=== PATIENT | female | born 1940 | race Two or more races ===

== ENCOUNTER 2017-02-21 22:56 | Inpatient (IN) | payer MEDICARE, BC ==
[~2017-02-21] VITALS: Ht 162.6 cm; Wt 63.5 kg
[~2017-02-21 22:56] MED LIST: ATORVASTATIN CA20 MG ORAL; BP MEDS PO; CHOLESTEROL PO; MICARDIS80 MG ORAL
[2017-02-21] MEDS ORDERED: Ketorolac 30mg Inj IM ONE (23:15)
[2017-02-21] MEDS ORDERED: DiphenhydrAMINE 50mg/ml Inj IVP ONE (23:15)
[2017-02-21] MEDS ORDERED: HYDROmorphone 1mg/ml Carpuject IVP ONE (23:15)
[2017-02-21 23:30] LABS: BASOPHILS % (AUTO) 0.7 % (0.0-2.0); EOSINOPHILS % (AUTO) 2.1 % (0.0-3.0); LYMPHOCYTES % (AUTO) 35.1 % (20.0-45.0); MEAN CORPUSCULAR HEMOGLOBIN 31.4 PG (27.0-31.0); MEAN CORPUSCULAR HGB CONC 33.7 G/DL (32.0-36.0); MEAN CORPUSCULAR VOLUME 93 FL (80-99); MEAN PLATELET VOLUME 6.2 FL (6.5-10.1); MONOCYTES % (AUTO) 8.6 % (1.0-10.0); NEUTROPHILS % (AUTO) 53.5 % (45.0-75.0); PLATELET COUNT 234 K/UL (150-450); RED CELL DISTRIBUTION WIDTH 11.7 % (11.6-14.8); WHITE BLOOD COUNT 8.8 K/UL (4.8-10.8)
[2017-02-21 23:46] LABS: INR 1.1 (0.9-1.1); PROTHROMBIN TIME 10.7 SEC (9.30-11.50)
[2017-02-21 23:48] LABS: ALANINE AMINOTRANSFERASE 18 U/L (3-33); ALBUMIN/GLOBULIN RATIO 1.3 (1.0-2.7); ANION GAP 16 (5-15); ASPARTATE AMINO TRANSFERASE 19 U/L (5-40); CALCIUM 9.3 mg/dL (8.6-10.2); CARBON DIOXIDE 24 mEQ/L (20-30); CHLORIDE 96 mEQ/L (98-107); CREATININE 1.1 mg/dL (0.5-0.9); HEMOLYSIS 0; POTASSIUM 5.1 mEQ/L (3.4-4.9); SODIUM 136 mEQ/L (135-145); TOTAL PROTEIN 6.7 g/dL (6.6-8.7)
[2017-02-22 00:28] VITALS: BP 149/76
--- NOTE | 2017-02-22 00:32 | Emergency Room Report ---
History of Present Illness General Chief Complaint: Multiple Trauma/Fall Source: Patient, Family Member, EMS Present Illness HPI The patient presents with right thigh pain. She fell tonight using her walker. She's had a femur fracture before. It feels like that. Paramedics placed her in a hair traction splint. He also gave her a milligrams of morphine. This controlled her pain somewhat but then they say that the pain is coming back again. She denies any numbness of her foot there. In the last 2 days he's had evaluations of x-rays of her pelvis her lower back and the femur which have been negative. These were all done and seizures. He the patient denies any fevers, cough, chest pain or dysuria. She's been able to move her bowels without difficulty. The pain right now is severe constant and is also muscle spasm. It radiates somewhat up into her buttock area. She had a prior L femur fracture. She has osteoporosis. No NVD, dysuria, chest pain, dyspnea, headache, bleeding. Allergies: Coded Allergies: No Known Allergies (Unverified , 02/21/17) Patient History Past Medical History: see triage record Social History Narrative at home Reviewed Nursing Documentation: PMH: Agreed, PSxH: Agreed Nursing Documentation-PMH Hx Hypertension: Yes Hx Diabetes: Yes Hx Cancer: No Hx Gastrointestinal Problems: No Hx Neurological Problems: Yes - HX MIGRAINE-LAST EPISODE 50 YRS AGO Hx Neurologic Surgery: Yes - BRAIN SURGERY Review of Systems All Other Systems: negative except mentioned in HPI Physical Exam Vital Signs Date Time Temp Pulse Resp B/P Pulse Ox O2 Delivery O2 Flow Rate FiO2 02/21/17 22:56 98.1 107 16 143/64 99 Room Air Sp02 EP Interpretation: reviewed, normal General Appearance: alert, GCS 15, mild distress Head: normocephalic Eyes: bilateral eye PERRL, bilateral eye normal inspection ENT: moist mucus membranes Neck: supple Respiratory: chest non-tender, lungs clear, normal breath sounds Cardiovascular #1: regular rate, rhythm Cardiovascular #2: 2+ radial (R), 2+ dorsalis pedis (R) Gastrointestinal: normal inspection, normal bowel sounds, non tender, no mass, non-distended Musculoskeletal: back normal, digits/nails normal, no calf tenderness, pelvis stable, other - hare traction splint R Neurologic: alert, oriented x3, motor strength/tone normal, sensory intact, speech normal, other - distal neurovasc normal Psychiatric: anxious Skin: warm/dry, other - sallo Medical Decision Making Diagnostic Impression: Primary Impression: Femur fracture, right Qualified Codes: S72.321A - Displaced transverse fracture of shaft of right femur, initial encounter for closed fracture Additional Impressions: Fall Qualified Codes: W19.XXXA - Unspecified fall, initial encounter Degenerative joint disease (DJD) of lumbar spine Qualified Codes: M47.816 - Spondylosis without myelopathy or radiculopathy, lumbar region ER Course Presents with right thigh pain after a fall. Differential includes contusion, hip fracture, femur fracture, knee fracture amongst others. X-rays are indicated. Also aggressive analgesia will be sought. Laboratory will be obtained. The patient also needs a Parker catheter. The traction is appropriately applied. X-ray reveals a mid shaft femur fracture. Discussion with family center around the fact that they are requesting that she be transferred to [facility]. Her private primary physician was contacted and he is attempting to arrange transfer. The patient's pain is 5/10 after Dilaudid. She is declining more pain medication at this time. [facility] not have beds. Admit here Dr. Barraza. Dr. Cedillo contacted with x-rays. Discussed with family that she could not be transferred. They would still like her transferred as soon as possible. Neurovasc intact with Hare traction, position excellent as examined by me. Laboratory Tests Test 02/21/17 23:15 02/22/17 00:40 White Blood Count 8.8 K/UL (4.8-10.8) Red Blood Count 3.60 M/UL (4.20-5.40) L Hemoglobin 11.3 G/DL (12.0-16.0) L Hematocrit 33.5 % (37.0-47.0) L Mean Corpuscular Volume 93 FL (80-99) Mean Corpuscular Hemoglobin 31.4 PG (27.0-31.0) H Mean Corpuscular Hemoglobin Concent 33.7 G/DL (32.0-36.0) Red Cell Distribution Width 11.7 % (11.6-14.8) Platelet Count 234 K/UL (150-450) Mean Platelet Volume 6.2 FL (6.5-10.1) L Neutrophils (%) (Auto) 53.5 % (45.0-75.0) Lymphocytes (%) (Auto) 35.1 % (20.0-45.0) Monocytes (%) (Auto) 8.6 % (1.0-10.0) Eosinophils (%) (Auto) 2.1 % (0.0-3.0) Basophils (%) (Auto) 0.7 % (0.0-2.0) Prothrombin Time 10.7 SEC (9.30-11.50) Prothrombin Time INR 1.1 (0.9-1.1) PTT 24 SEC (23-33) Sodium Level 136 mEQ/L (135-145) Potassium Level 5.1 mEQ/L (3.4-4.9) H Chloride Level 96 mEQ/L (98-107) L Carbon Dioxide Level 24 mEQ/L (20-30) Anion Gap 16 (5-15) H Blood Urea Nitrogen 33 mg/dL (7-23) H Creatinine 1.1 mg/dL (0.5-0.9) H Estimate Glomerular Filtration Rate mL/min (>60) Glucose Level 172 mg/dL (74-106) H Calcium Level 9.3 mg/dL (8.6-10.2) Total Bilirubin < 0.2 mg/dL (0.0-1.2) Aspartate Amino Transferase (AST) 19 U/L (5-40) Alanine Aminotransferase (ALT) 18 U/L (3-33) Alkaline Phosphatase 43 U/L (35-104) Total Protein 6.7 g/dL (6.6-8.7) Albumin 3.8 g/dL (3.5-5.2) Globulin 2.9 g/dL Albumin/Globulin Ratio 1.3 (1.0-2.7) Urine Color Pale yellow Urine Appearance Clear Urine pH 6 (4.5-8.0) Urine Specific [place] 1.015 (1.005-1.035) Urine Protein Negative (NEGATIVE) Urine Glucose (UA) 2+ (NEGATIVE) H Urine Ketones Negative (NEGATIVE) Urine Occult Blood Negative (NEGATIVE) Urine Nitrite Negative (NEGATIVE) Urine Bilirubin Negative (NEGATIVE) Urine Urobilinogen Normal MG/DL (0.0-1.0) Urine Leukocyte Esterase Negative (NEGATIVE) EKG Diagnostic Results Rate: normal Rhythm: NSR ST Segments: no acute changes Rhythm Strip Diag. Results EP Interpretation: yes Rhythm: NSR, no PVC's, no ectopy Chest X-Ray Diagnostic Results EP Interpretation: Yes Findings: no consolidation, no effusion, no pneumothorax Number of Views: 1 Other X-Ray Diagnostic Results Other X-Ray Diagnostic Results #1: X-Ray Ordered: LS spine EP Interpretation: Yes Findings: no soft tissue swelling, other - prior abnormalities with scoleosis Other X-Ray Diagnostic Results #2: X-Ray Ordered: r femur EP Interpretation: Yes Findings: no soft tissue swelling, other - fx with some displacement Number of Views: 2 Other X-Ray Diagnostic Results #3: X-Ray Ordered: pelvis EP Interpretation: Yes Findings: no fractures, no dislocation, no soft tissue swelling - L pinning hip Last Vital Signs Date Time Temp Pulse Resp B/P Pulse Ox O2 Delivery O2 Flow Rate FiO2 02/22/17 09:25 96.6 02/22/17 08:00 75 20 118/59 98 Room Air Status: improved Disposition: ADMITTED INPATIENT Condition: Serious Referrals: KRUNAL BARRAZA (PCP) Krunal Lange M.D. Feb 22, 2017 00:32
[2017-02-22 00:56] LABS: APPEARANCE,URINE CLEAR; KETONES,URINE NEGATIVE (NEGATIVE); LEUKOCYTE ESTERASE ,URINE NEGATIVE (NEGATIVE); NITRITE,URINE NEGATIVE (NEGATIVE); PH,URINE 6 (4.5-8.0); PROTEIN,URINE NEGATIVE (NEGATIVE); UROBILINOGEN,URINE NORMAL MG/DL (0.0-1.0)
[2017-02-22 02:40] VITALS: BP 125/63
[2017-02-22] MEDS ORDERED: UNOBMED (02:43)
[2017-02-22] MEDS ORDERED: Norco 5mg/325mg tab ORAL PRN (03:15)
[2017-02-22 04:06] VITALS: BP 123/61
[2017-02-22 04:30] VITALS: BP 121/60
[2017-02-22] MEDS: HYDROmorphone 1mg/ml Carpuject IVP PRN ×2 (06:34→08:55)
[2017-02-22 08:00] VITALS: BP 118/59
[2017-02-22] MEDS ORDERED: Enoxaparin 60mg Inj SUBQ ONE (09:00)
[2017-02-22] MEDS ORDERED: Enoxaparin 40mg Inj SUBQ SCH (09:00)
[2017-02-22] MEDS ORDERED: NovoLOG Insulin Flexpen SUBQ SCH (11:30)
--- NOTE | 2017-02-22 11:37 | Diagnostic Imaging Report ---
Indication: TRAUMA Technique: One view of the chest Comparison: none Findings: The lungs and pleural spaces are clear. The heart is mildly enlarged. Aorta is tortuous and calcified. There are degenerative changes of the lumbar spine Impression: Cardiomegaly. No acute process This agrees with the preliminary interpretation provided by the emergency room physician
--- NOTE | 2017-02-22 11:37 | Diagnostic Imaging Report ---
Indication: TRAUMA Technique: One view of the pelvis Comparison: None Findings: Surgical hardware seen reducing old left hip fracture. No definite acute fractures. No dislocations. There are degenerative changes of the pubic symphysis. Impression: No definite acute bony trauma. Note, however, that in elderly osteopenic patients, nondisplaced hip or pelvic fractures can easily be occult. Correlate with clinical findings, consider cross-sectional imaging if there is high clinical suspicion This agrees with the preliminary interpretation provided by the emergency room physician
--- NOTE | 2017-02-22 11:41 | Diagnostic Imaging Report ---
Indications: TRAUMA, pain, status post fall Technique: Two views of the right femur Comparison: None Findings: There is a fracture of the femoral shaft, displaced by at least one half bone width, slightly angulated, slightly rotated. There is a knee prosthesis. Impression: Positive for proximal femoral shaft fracture This agrees with the preliminary interpretation provided by the emergency room physician
[2017-02-22 12:00] VITALS: BP 114/64
--- NOTE | 2017-02-22 13:42 | Cardiology Report ---
APPROVED REPORT EKG Measurement Heart [id number] Normal sinus rhythm Normal ECG
--- NOTE | 2017-02-22 14:26 | History and Physical ---
History of Present Illness General Date patient seen: Feb 22, 2017 Reason for Hospitalization: Multiple Trauma/Fall Present Illness HPI 76 year old female with hx of DM, HTN presented with right thigh pain after an episode of fall yesterday while using her walker. She's had a femur fracture before. In the last 2 days he's had evaluations of x-rays of her pelvis her lower back and the femur which have been negative. The evaluation in Er showed that she had mid shaft femur fracture. Allergies: Coded Allergies: No Known Allergies (Unverified , 02/21/17) Medication History Scheduled Atorvastatin Calcium* (Atorvastatin Calcium*), 20 MG ORAL BEDTIME, (Reported) Telmisartan (Micardis), 80 MG ORAL DAILY, (Reported) Miscellaneous Medications Unable to Obtain Medications (Unable To Obtain Meds), (Reported) Patient History Healthcare decision maker Resuscitation status Advanced Directive on File No Past Medical/Surgical History Past Medical/Surgical History: (1) HTN (hypertension) (2) CAD (coronary artery disease) Physical Exam General Appearance: WD/WN Lines, tubes and drains: peripheral, central line HEENT: normocephalic, anicteric Neck: non-tender Respiratory/Chest: chest wall non-tender, normal breath sounds Breasts: no masses Cardiovascular/Chest: normal rate Abdomen: non tender, soft Extremities: normal range of motion Skin Exam: warm/dry Last 24 Hour Vital Signs Date Time Temp Pulse Resp B/P Pulse Ox O2 Delivery O2 Flow Rate FiO2 02/22/17 12:00 97.7 76 22 114/64 98 Room Air 02/22/17 09:25 96.6 02/22/17 08:00 97.0 75 20 118/59 98 Room Air 02/22/17 04:30 96.6 74 20 121/60 98 Room Air 02/22/17 04:08 98.1 74 22 123/61 100 Room Air 02/22/17 04:06 74 22 123/61 100 Room Air 02/22/17 02:40 85 16 125/63 95 Room Air 02/22/17 00:28 98.1 74 23 149/76 99 Room Air 02/21/17 23:56 98.1 02/21/17 23:56 98.1 02/21/17 22:56 98.1 107 16 143/64 99 Room Air Intake and Output 02/21/17 02/22/17 19:00 07:00 Output Total 1600 ml Balance -1600 ml Output Urine Total 1600 ml Laboratory Tests Test 02/21/17 23:15 02/22/17 00:40 White Blood Count 8.8 K/UL (4.8-10.8) Red Blood Count 3.60 M/UL (4.20-5.40) L Hemoglobin 11.3 G/DL (12.0-16.0) L Hematocrit 33.5 % (37.0-47.0) L Mean Corpuscular Volume 93 FL (80-99) Mean Corpuscular Hemoglobin 31.4 PG (27.0-31.0) H Mean Corpuscular Hemoglobin Concent 33.7 G/DL (32.0-36.0) Red Cell Distribution Width 11.7 % (11.6-14.8) Platelet Count 234 K/UL (150-450) Mean Platelet Volume 6.2 FL (6.5-10.1) L Neutrophils (%) (Auto) 53.5 % (45.0-75.0) Lymphocytes (%) (Auto) 35.1 % (20.0-45.0) Monocytes (%) (Auto) 8.6 % (1.0-10.0) Eosinophils (%) (Auto) 2.1 % (0.0-3.0) Basophils (%) (Auto) 0.7 % (0.0-2.0) Prothrombin Time 10.7 SEC (9.30-11.50) Prothromb Time International Ratio 1.1 (0.9-1.1) Activated Partial Thromboplast Time 24 SEC (23-33) Sodium Level 136 mEQ/L (135-145) Potassium Level 5.1 mEQ/L (3.4-4.9) H Chloride Level 96 mEQ/L (98-107) L Carbon Dioxide Level 24 mEQ/L (20-30) Anion Gap 16 (5-15) H Blood Urea Nitrogen 33 mg/dL (7-23) H Creatinine 1.1 mg/dL (0.5-0.9) H Estimat Glomerular Filtration Rate mL/min (>60) Glucose Level 172 mg/dL (74-106) H Calcium Level 9.3 mg/dL (8.6-10.2) Total Bilirubin < 0.2 mg/dL (0.0-1.2) Aspartate Amino Transf (AST/SGOT) 19 U/L (5-40) Alanine Aminotransferase (ALT/SGPT) 18 U/L (3-33) Alkaline Phosphatase 43 U/L (35-104) Total Protein 6.7 g/dL (6.6-8.7) Albumin 3.8 g/dL (3.5-5.2) Globulin 2.9 g/dL Albumin/Globulin Ratio 1.3 (1.0-2.7) Urine Color Pale yellow Urine Appearance Clear Urine pH 6 (4.5-8.0) Urine Specific [place] 1.015 (1.005-1.035) Urine Protein Negative (NEGATIVE) Urine Glucose (UA) 2+ (NEGATIVE) H Urine Ketones Negative (NEGATIVE) Urine Occult Blood Negative (NEGATIVE) Urine Nitrite Negative (NEGATIVE) Urine Bilirubin Negative (NEGATIVE) Urine Urobilinogen Normal MG/DL (0.0-1.0) Urine Leukocyte Esterase Negative (NEGATIVE) Height (Feet): 5 Height (Inches): 4.00 Weight (Pounds): 140 Medications Current Medications Medications (Trade) Dose Ordered Sig/Deng Route PRN Reason Start Time Stop Time Status Last Admin Dose Admin Acetaminophen/ Hydrocodone Bitart ([employer] 5/325) 1 tab Q4HR PRN ORAL For Pain 02/22/17 03:15 03/01/17 03:14 Atorvastatin Calcium (Lipitor) 20 mg BEDTIME ORAL 02/22/17 21:00 03/24/17 20:59 Dextrose (Dextrose 50%) STAT PRN IV Hypoglycemia 02/22/17 10:30 03/24/17 10:29 Enoxaparin Sodium (Lovenox) 40 mg DAILY SUBQ 02/22/17 09:00 03/24/17 08:59 Hydromorphone HCl (Dilaudid) 1 mg EVERY 2 HOURS PRN IVP For Pain 02/22/17 06:15 03/01/17 06:14 02/22/17 08:55 Insulin Aspart (NovoLOG) BEFORE MEALS AND HS SUBQ 02/22/17 11:30 03/24/17 11:29 02/22/17 12:09 Assessment/Plan Problem List: (1) Femur fracture, right ICD Codes: S72.91XA - Unspecified fracture of right femur, initial encounter for closed fracture SNOMED: 30044802 Qualifiers: Qualified Codes: S72.321A - Displaced transverse fracture of shaft of right femur, initial encounter for closed fracture (2) CAD (coronary artery disease) ICD Codes: I25.10 - Atherosclerotic heart disease of [place] coronary artery without angina pectoris SNOMED: 91705069 (3) HTN (hypertension) ICD Codes: I10 - Essential (primary) hypertension SNOMED: 94362300 Assessment/Plan pain control transfer to [facility] for surgery as requested by pt and her family dvt prophylaxis SHO BELTRAN Feb 22, 2017 14:25
[2017-02-22] MEDS ORDERED: Atorvastatin 20mg tab ORAL SCH (21:00)
--- NOTE | 2017-02-23 10:02 | Discharge Summary ---
Discharge Summary Hospital Course Date of Admission Feb 21, 2017 at 23:32 Date of Discharge Feb 22, 2017 at 16:00 Admitting Diagnosis FEMUR FRACTURE HPI Robert Pearl is a 76 year old female who was admitted on Feb 21, 2017 at 23:32 for Femur Fracture Hospital Course dc summary #[id number] Discharge Medications Continued Medications: Atorvastatin Calcium* (Atorvastatin Calcium*) 20 Mg Tablet 20 MG ORAL BEDTIME, TAB Telmisartan (Micardis) 80 Mg Tablet 80 MG ORAL DAILY, TAB Unable to Obtain Medications (Unable To Obtain Meds) 1 Ea Ea Discharge Condition Upon Discharge: stable Discharge Disposition Patient was discharged to [facility] for surgical interventions Discharge Diagnoses: Discharge Instructions Discharge Instructions Special Instructions I have been assigned to complete a D/C Summary on this account. I was not involved in the patient management Valerie Breen NP ([place]anchte[place]) Feb 23, 2017 10:02
--- NOTE | 2017-02-24 02:58 | Discharge Summary 2 SIG ---
DATE OF ADMISSION: 02/21/2017 DATE OF DISCHARGE: 02/22/2017 REASON FOR ADMISSION: 76-year-old female, presented with right thigh pain, after she sustained a fall while using her walker. The patient has a history of femur fracture in the past. Paramedics placed the patient in Hare traction splint. She was medicated for pain in route for the hospital. She denied any numbness in her foot. She denied fever, cough, chest pain, dysuria, shortness of breath, palpitations and dizziness. Pain was severe, constant along with the muscle spasm. Pain was radiating down to her buttock area. The patient with a prior history of left femur fracture and osteoporosis along with diabetes and hypertension. Workup in the emergency room, namely the right femur x-ray revealed evidence of proximal femoral shaft fracture. Family requested transfer to [facility] for surgery. The patient was afebrile. No leukocytosis. Laboratory work stable. EKG showed normal sinus rhythm. Chest x-ray negative. Emergency room doctor evaluated Hare traction. The patient was neurovascularly intact. Position of splint was excellent. The patient was medicated for pain. No beds at [facility]. Patient admitted to the hospital while awaiting for a bed. ADMITTING DIAGNOSIS: 1. s/p mechanical fall 2. Right proximal femoral shaft fracture 3. R leg pain 4, Hypertension 5. Diabetes HOSPITAL COURSE: Initially, the patient was admitted to the hospital. Pain management provided. DVT prophylaxis provided. Patient was kept NPO fro planned surgery. IV fluids with dextrose provided. Blood pressure and blood sugar were monitored closely, and were stable. Later that day, the patient was transferred to [facility] for further surgical intervention and kept NPO. DISCHARGE DIAGNOSES: 1. Status post mechanical fall 2. Right proximal femoral shaft fracture. 2. Hypertension. 3. Diabetes. 4. Right thigh pain. DISCHARGE MEDICATIONS: See medication reconciliation list. DISCHARGE INSTRUCTIONS: The patient was transferred to [facility] for further surgical intervention. Dain Wilson M.D. I have been assigned to dictate discharge summary on this account and I was not involved in the patient's management. Valerie Breen N.P. ([place]anchtein) DR: Maury JOB#: [id number] CC: SUNSHINE
== END 2017-02-22 16:00 | disposition short-term general hospital (02) | DRG 534 ==
LOC: EDBD 22:56 → EMR 23:31 → 4W 23:32 → EDBEDREQ 02-22 01:20 → 4W 02-22 04:39
DX: S72.321A Displaced transverse fracture of shaft of right femur, initial encounter for closed fracture (principal); E11.9 Type 2 diabetes mellitus without complications; I10 Essential (primary) hypertension; W19.XXXA Unspecified fall, initial encounter; M81.0 Age-related osteoporosis without current pathological fracture; I25.10 Atherosclerotic heart disease of native coronary artery without angina pectoris
CPT/HCPCS: 36415; 71010; 72020; 72170; 80053; 81003; 82962; 85025; 85610; 85730; 86850; 86900; 86901; 93005; J1815; J2405